=== PATIENT | male | born 1990 | race Caucasian/White ===

== ENCOUNTER → 2023-09-06 08:43 | Outpatient (REF) | payer BC, SELFPAY | LOC: HWRAD 08:43 | PROVIDERS: ATTENDING PHYSICIAN Nurse Practitioner Family | DX: N50.819 Testicular pain, unspecified (principal); R10.31 Right lower quadrant pain | CPT/HCPCS: 76870; 76882; 93976 ==

== ENCOUNTER → 2025-01-30 09:07 | Outpatient (REF) | payer BC, SELFPAY | LOC: HWRAD 09:07 | PROVIDERS: ATTENDING PHYSICIAN Otolaryngology; FAMILY PHYSICIAN Family Medicine | DX: J32.0 Chronic maxillary sinusitis (principal); R09.81 Nasal congestion | CPT/HCPCS: 70486 ==

== ENCOUNTER → 2025-03-15 16:44 | Outpatient (REF) | payer BC, SELFPAY | LOC: CLAB 16:44 | PROVIDERS: ATTENDING PHYSICIAN Otolaryngology | DX: J35.01 Chronic tonsillitis (principal) | CPT/HCPCS: 88304 ==